=== PATIENT | female | born 1990 | race Caucasian/White ===

== ENCOUNTER 2020-04-09 07:56 | Observation (INO) ==
[2020-04-09] MEDS ORDERED: Ondansetron 4 mg VIAL 2 MG/ML 2 ml VIAL IV ONE ×2 (08:21→10:33)
[2020-04-09] MEDS ORDERED: NS 0.9% 1000 ml BAG 1,000 ML IV ONE ×3 (08:21→14:42)
[2020-04-09] MEDS ORDERED: Lorazepam PYXIS KEY PRN (08:31)
[2020-04-09] MEDS ORDERED: LORazepam 2 mg VIAL 1 ml IV PUSH ONE (08:31)
[2020-04-09 09:20] LABS: ABS Lymphocytes 0.7 10^3/ul (1.0-4.8); ABS Monocytes 0.7 10^3/ul (0-0.8); Eosinophil % 0.3 %; Hematocrit 41 % (35-47); Hemoglobin 13.9 g/dL (12.0-16.0); Lymphocyte % 5.9 %; Mean Corpuscular HGB Conc 34 g/dL (31-36); Mean Corpuscular Hemoglobin 30 pg (27-31); Mean Corpuscular Volume 88 fL (80-97); Mean Platelet Volume 7.7 fL (7.4-10.4); Platelet Count 315 10^3/uL (150-450); Red Cell Distribution Width 14 % (10-15); White Blood Count 11.7 10^3/uL (3.5-10.8)
[2020-04-09 09:37] LABS: ALT 12 U/L (7-52); AST 20 U/L (13-39); Albumin 4.5 g/dL (3.2-5.2); Albumin/Globulin Ratio 1.5 (1-3); Alkaline Phosphatase 69 U/L (34-104); Anion Gap 15 mmol/L (2-11); BUN/Creatinine Ratio 11.9 (8-20); Blood Urea Nitrogen 17 mg/dL (6-24); C Reactive Protein 16.08 mg/L (<8.01); CO2 Carbon Dioxide 20 mmol/L (22-32); Calcium 10.1 mg/dL (8.6-10.3); Chloride 100 mmol/L (101-111); EGFR African American 52.9 (>60); EGFR Non-African American 43.7 (>60); Glucose 160 mg/dL (70-100); Potassium 2.9 mmol/L (3.5-5.0); Sodium 135 mmol/L (135-145); Total Protein 7.5 g/dL (6.4-8.9)
[2020-04-09] MEDS ORDERED: Potassium Chlor 20 meq TAB.ER PO ONE (09:41)
[2020-04-09 09:44] LABS: HCG Pregnancy < 0.60 mIU/mL
[2020-04-09] MEDS: KCL 20 MEQ/100 ML IVPREMIX 20 MEQ/100 ML BAG IV SCH ×2 (10:12→13:04)
[2020-04-09] MEDS ORDERED: Ondansetron 4 mg VIAL 2 MG/ML 2 ml VIAL ONE (10:39)
[2020-04-09 11:10] LABS: Magnesium 1.7 mg/dL (1.9-2.7)
[2020-04-09] MEDS ORDERED: Magnesium Sulfate 2 gm BAG 2 GM/50 ML BAG IVPB ONE (11:26)
[2020-04-09] MEDS ORDERED: Prochlorperazine 5 mg/ml 2 ml VIAL (10 mg) IV ONE (12:50)
[2020-04-09 13:09] LABS: Urine Appearance Cloudy; Urine Bilirubin Negative (Negative); Urine Blood 1+ (Negative); Urine Color Straw; Urine Glucose Negative (Negative); Urine Ketones 1+ (Negative); Urine Nitrite Negative (Negative); Urine Protein 1+(30 mg/dL) (Negative); Urine Specific Gravity 1.006 (1.010-1.030); Urine Urobilinogen Negative (Negative)
[2020-04-09 13:12] LABS: Urine Bacteria 1+ (Absent); Urine Red Blood Cell 1+(3-5/hpf) (Absent); Urine Squamous Epithelial Cell Present (Absent); Urine White Blood Cell 2+(11-20/hpf) (Absent)
[2020-04-09 13:26] LABS: Urine Benzodiazepine Screen None Detected (None Detect); Urine Opiates Screen None Detected (None Detect)
[2020-04-09 13:42] LABS: Albumin/Globulin Ratio 1.5 (1-3); BUN/Creatinine Ratio 11.5 (8-20); Calcium 9.1 mg/dL (8.6-10.3); EGFR African American 47.8 (>60); EGFR Non-African American 39.5 (>60); Globulin 2.7 g/dL (2-4); Potassium 3.8 mmol/L (3.5-5.0); Total Bilirubin 1.1 mg/dL (0.2-1.0); Total Protein 6.7 g/dL (6.4-8.9)
[2020-04-09] MEDS ORDERED: cefTRIAXone 1 gm/50 mL NS BAG 1 GM/50 ML BAG IVPB ONE (14:25)
[2020-04-09] MEDS: Ondansetron 4 mg VIAL 2 MG/ML 2 ml VIAL IV PRN (17:52)
[2020-04-09] MEDS: NS 0.9% 1000 ml BAG 1,000 ML IV SCH (17:53)
[2020-04-10] MEDS: Ondansetron 4 mg VIAL 2 MG/ML 2 ml VIAL IV PRN (03:56)
[2020-04-10] MEDS: LORazepam 0.5 mg TAB (*) PO PRN ×2 (04:08→10:52)
[2020-04-10 06:19] LABS: Calcium 8.1 mg/dL (8.6-10.3)
[2020-04-10 06:25] LABS: BUN/Creatinine Ratio 11.4 (8-20); EGFR Non-African American 47.9 (>60)
[2020-04-10 06:27] LABS: Potassium 3.9 mmol/L (3.5-5.0)
[2020-04-10] MEDS ORDERED: Ondansetron ODT 4 mg TAB 4 MG TAB SL PRN (07:55)
[2020-04-10 08:09] LABS: ABS Basophils 0.1 10^3/ul (0-0.2); ABS Lymphocytes 1.4 10^3/ul (1.0-4.8); Hematocrit 35 % (35-47); Hemoglobin 12.1 g/dL (12.0-16.0); Mean Corpuscular HGB Conc 34 g/dL (31-36); Mean Corpuscular Hemoglobin 30 pg (27-31); Mean Corpuscular Volume 88 fL (80-97); Mean Platelet Volume 8.5 fL (7.4-10.4); Platelet Count 260 10^3/uL (150-450); Red Blood Count 3.98 10^6 /uL (3.70-4.87); Red Cell Distribution Width 14 % (10-15); White Blood Count 19.4 10^3/uL (3.5-10.8)
[2020-04-10] MEDS: NS 0.9% 1000 ml BAG 1,000 ML IV SCH (08:26)
[2020-04-10] MEDS ORDERED: Prochlorperazine 5 mg/ml 2 ml VIAL (10 mg) IV PRN (10:30)
[2020-04-10] MEDS ORDERED: NS 0.9% 1000 ml BAG 1,000 ML IV SCH (11:36)
[2020-04-10 13:15] VITALS: BP 129/74
[2020-04-10] MEDS ORDERED: cefTRIAXone 1 gm/50 mL NS BAG 1 GM/50 ML BAG IVPB SCH (14:00)
== END 2020-04-10 17:30 | disposition home or self-care (01) ==
LOC: ED 07:56 → MED 07:56 → MERGE 16:22 → MED 16:31
PROVIDERS: ADMIT Hospitalist; ATTEND Internal Medicine